=== PATIENT | female | born 1980 | race Caucasian/White ===

== ENCOUNTER 2017-11-05 | Emergency (ER) | payer BC ==
[~2017-11-05] VITALS: Ht 160 cm; Wt 102.1 kg
[~2017-11-05] MED LIST: CALCITRIOL0.5 MCG; CALCIUM500 MG PO; PHENERGAN SUPP25 MG PR; SYNTHROID175 MCG PO; Z.0.ALLOPURINOL100 M; Z.0.AMBIEN10 MG PO; Z.0.CELEXA20 MG PO; Z.0.POTASSIUM CITR10 PO; Z.0.PROPRANOLOL HCL1 PO; Z.0.PROZAC20 MG; Z.1.HYDROCHLOROTH12. PO
[2017-11-05] MEDS ORDERED: KETOROLAC TROMETHAMINE 30 MG/ML VIAL IV STA (00:20)
[2017-11-05 00:26] LABS: BASOPHILS # (AUTO) 0.1 (0.0-0.1); BASOPHILS % 0.6 % (0.0-1.0); EOSINOPHILS # (AUTO) 0.4 (0.0-0.4); EOSINOPHILS % 3.8 % (0.0-6.0); HEMATOCRIT 33.5 % (34.2-44.1); HEMOGLOBIN 11.3 g/dL (12.0-16.0); LYMPHOCYTES # (AUTO) 2.5 (1.0-3.2); LYMPHOCYTES % 23.7 % (18.0-39.1); MEAN CORPUSCULAR HEMOGLOBIN 28.5 pg (28-32); MEAN CORPUSCULAR HGB CONC 33.7 g/dL (31-35); MEAN CORPUSCULAR VOLUME 84.4 fL (81-99); MONOCYTES # (AUTO) 0.6 (0.2-0.8); MONOCYTES % 5.2 % (4.4-11.3); NEUTROPHILS # (AUTO) 6.9 (2.1-6.9); NEUTROPHILS % 66.2 % (38.7-80.0); PLATELET COUNT 276 x10e3/uL (140-360); RED BLOOD COUNT 3.97 x10e6/uL (3.6-5.1); RED CELL DISTRIBUTION WIDTH 15.8 % (11.7-14.4)
[2017-11-05 00:37] LABS: BILIRUBIN,URINE NEGATIVE (NEGATIVE); CLARITY,URINE CLOUDY (CLEAR); COLOR,URINE YELLOW (YELLOW); KETONES,URINE NEGATIVE (NEGATIVE); LEUKOCYTE ESTERASE ,URINE NEGATIVE (NEGATIVE); NITRITE,URINE NEGATIVE (NEGATIVE); PROTEIN,URINE DIPSTICK 1+ (NEGATIVE); RBC,URINE >50 /HPF (0-5); URINE UROBILINOGEN 0.2 mg/dL (0.2 - 1); WBC,URINE (MAN) 0-5 /HPF (0-5)
[2017-11-05 00:38] LABS: EPITHELIAL CELLS,URINE FEW /LPF
[2017-11-05 00:42] LABS: ALANINE AMINOTRANSFERASE 14 IU/L (0-55); ALBUMIN 3.8 g/dL (3.5-5.0); ALKALINE PHOSPHATASE 79 IU/L (40-150); ANION GAP 15.1 mmol/L (8-16); BLOOD UREA NITROGEN 17 mg/dL (7-26); BUN/CREATININE RATIO 19 (6-25); CALCIUM 7.7 mg/dL (8.4-10.2); CARBON DIOXIDE 22 mmol/L (22-29); CHLORIDE 103 mmol/L (98-107); EST GLOMERULAR FILTRATION RATE > 60 ML/MIN (60-); GLUCOSE 102 mg/dL (74-118); POTASSIUM 4.1 mmol/L (3.5-5.1); SODIUM 136 mmol/L (136-145)
[2017-11-05 00:45] LABS: PREGNANCY TEST, URINE NEGATIVE (NEGATIVE)
[2017-11-05] MEDS ORDERED: PROMETHAZINE HCL (IM) 25 MG/ML VIAL IM ONE (00:45)
[2017-11-05] MEDS ORDERED: SODIUM CHLORIDE 0.9% 1000ML 1,000 ML IV ONE (00:45)
--- NOTE | 2017-11-05 01:50 | Diagnostic Imaging Report ---
ABDOMEN-1VIEW (KUB) Clinical history: Right flank pain Technique: AP view abdomen Comparison: 09/04/2015 Findings: Left lateral abdomen and hemidiaphragms are excluded from view. Moderate stool burden throughout the colon, which limits evaluation for stones. No definite stones over the expected kidneys or ureters. Impression: Nonobstructive bowel gas pattern with moderate stool burden. No radiographic evidence of nephroureterolithiasis. Signed by: Dr Ary Braxton MD on 11/05/2017 1:46 AM
== END 2017-11-05 02:14 | disposition home or self-care (01) ==
LOC: ER
DX: R10.9 Unspecified abdominal pain (principal); R31.9 Hematuria, unspecified; K59.00 Constipation, unspecified; Q61.5 Medullary cystic kidney; Z85.850 Personal history of malignant neoplasm of thyroid
CPT/HCPCS: 36415; 74018; 80053; 81001; 81025; 85025; 96360; 96374; 96375; 99284; J1885; J2550; J7030